=== PATIENT | male | born 1980 | race Caucasian/White ===

== ENCOUNTER → 2018-03-22 | Outpatient (CLI) | payer OTHER ==
[~2018-03-22] MED LIST: MOTRIN600 MG PO
== END | disposition home or self-care (01) ==
LOC: RAD 10:27 → LAB 10:27
DX: R05 Cough (principal); Z87.891 Personal history of nicotine dependence; Z77.098 Contact with and (suspected) exposure to other hazardous, chiefly nonmedicinal, chemicals